=== PATIENT | female | born 1995 | race Two or more races ===

== ENCOUNTER 2018-09-26 08:53 | Inpatient (IN) | payer OTHER ==
--- NOTE | 2018-09-26 10:57 | HP ---
COWS - Scale Resting Pulse: 0= [place] 80 or Below Sweatin= Chills/Flushing Restless Observation: 1= Difficult to Sit Still Pupil Size: 1= Pupils >than Normal Bone or Joint Aches: 2= Severe Diffuse Aches Runny Nose/ Eye Tearin= Runny Nose/Eyes GI Upset > 30mins: 2= Nausea/Diarrhea Tremor Observation: 2= Slight Tremor Visible Yawning Observation: 2= >3x During Session Anxiety or Irritability: 2=Irritable/Anxious Goose Flesh Skin: 0=Smooth Skin COWS Score: 15 CIWA Score - Admission Criteria OASAS Guidelines: Admission for Medically Managed Detox: Requires at least one of the followin. CIWA greater than 12 2. Seizures within the past 24 hours 3. Delirium tremens within the past 24 hours 4. Hallucinations within the past 24 hours 5. Acute intervention needed for co occurring medical disorder 6. Acute intervention needed for co occurring psychiatric disorder 7. Severe withdrawal that cannot be handled at a lower level of care (continued vomiting, continued diarrhea, abnormal vital signs) requiring intravenous medication and/or fluids 8. Admission ROS [facility] - [facility] Chief Complaint: i need help to stop using oxycontin Allergies/Adverse Reactions: Allergies Allergy/AdvReac Type Severity Reaction Status Date / Time No Known Allergies Allergy Verified 09/26/18 09:49 History of Present Illness: this 23 years old female with oxycontin dependence seeking detox,withdrawal symptom,never been in detox before anxiety,depression,insomnia plan for rehab after detox Exam Limitations: No Limitations - Ebola screening Have you traveled outside of the country in the last 21 days: No Have you had contact with anyone from an Ebola affected area: No - Review of Systems Constitutional: Chills, Loss of Appetite, Malaise, Night Sweats, Changes in sleep, Weakness EENT: reports: Tearing, Nose Congestion Respiratory: reports: No Symptoms reported Cardiac: reports: No Symptoms Reported GI: reports: Nausea, Poor Appetite, Vomiting, Abdominal cramping : reports: No Symptoms Reported Musculoskeletal: reports: Back Pain, Joint Pain, Muscle Pain Integumentary: reports: Dryness Neuro: reports: Headache, Tremors Endocrine: reports: No Symptoms Reported Hematology: reports: No Symptoms Reported Psychiatric: reports: No Sypmtoms Reported, Judgement Intact, Mood/Affect Appropiate, Orientated x3, Anxious (isomnia), Depressed, other Patient History - Patient Medical History Hx Anemia: No Hx Asthma: No Hx Chronic Obstructive Pulmonary Disease (COPD): No Hx Cancer: No Hx Cardiac Disorders: No Hx Congestive Heart Failure: No Hx Hypertension: No Hx Hypercholesterolemia: No HX Cerebrovascular Accident: No Hx Seizures: No Hx Dementia: No Hx Diabetes: No Hx Gastrointestinal Disorders: No Hx Liver Disease: No Hx Genitourinary Disorders: No Hx Sexually Transmitted Disorders: No Hx Renal Disease (ESRD): No Hx Thyroid Disease: No Hx Human Immunodeficiency Virus (HIV): No (last negative) Hx Hepatitis C: No Hx Depression: Yes (anxiety) Hx Suicide Attempt: No Hx Bipolar Disorder: No Hx Schizophrenia: No Other Medical History: no suicidal,no homicidal - Patient Surgical History Past Surgical History: No - PPD History Previous Implant?: Yes Documented Results: Negative w/o proof Implanted On Prior [facility] Admission?: No PPD to be Administered?: No - Reproductive History Patient is a Female of Child Bearing Age (11 -55 yrs old): Yes Last Menstrual Period: 09/24/18 Patient : No - Smoking Cessation Smoking history: Never smoked - Substance & Tx. History Hx Alcohol Use: No Hx Substance Use: Yes Substance Use Type: Opiates Hx Substance Use Treatment: No - Substances abused Oxycontin Substance route: Oral Frequency: Daily Amount used: (4) 30mg tab Age of first use: 21 Date of last use: 09/25/18 Family Disease History - Family Disease History Family History: Denies Admission Physical Exam BHS - Vital Signs Vital Signs: Vital Signs - 24 hr 09/26/18 09/26/18 09:48 10:48 Temperature 97.5 F L 97.5 F L Pulse Rate 78 78 Respiratory 18 18 Rate Blood Pressure 124/78 124/78 - Physical General Appearance: Yes: Moderate Distress, Tremorous, Irritable, Sweating, Anxious HEENTM: Yes: Normal ENT Inspection, [place], Pharynx Normal Respiratory: Yes: Lungs Clear, Normal Breath Sounds, No Respiratory Distress Neck: Yes: Within Normal Limits, Supple, Trachea in good position Breast: Yes: Within Normal Limits Cardiology: Yes: Within Normal Limits, Regular Rhythm, Regular Rate, S1, S2 Abdominal: Yes: Normal Bowel Sounds, Non Tender, Flat, Soft Genitourinary: Yes: Within Normal Limits Back: Yes: Muscle Spasm Musculoskeletal: Yes: Back pain, Joint Stiffness, Muscle Pain Extremities: Yes: Tremors Neurological: 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: 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 NML intact, Alert, Motor Strength 5/5 Integumentary: Yes: Dry Lymphatic: Yes: Within Normal Limits - Diagnostic (1) Opioid dependence with withdrawal Current Visit: Yes Status: Acute (2) Insomnia secondary to depression with anxiety Current Visit: Yes Status: Acute Cleared for Admission [facility] - Detox or Rehab [facility] Level of Care: Medically Managed Detox Regimen/Protocol: Methadone Breathalyzer - Breathalyzer Breathalyzer: 0 Urine Drug Screen - Test Device Lot number: [id number] Expiration date: 06/21/20 - Control Is test valid?: Yes - Results Drug screen NEGATIVE: No Urine drug screen results: THC-Marijuana, FEN-Fentanyl Inpatient Rehab Admission - Rehab Decision to Admit Inpatient rehab admission?: No
[2018-09-26] MEDS ORDERED: cloNIDine HCL 0.1 MG TABLET PO PRN (11:06)
[2018-09-26] MEDS ORDERED: MAG HYDROX/AL HYDROX/SIMETH 30 ML UNIT-DOSE CUP PO PRN (11:06)
[2018-09-26] MEDS ORDERED: MAGNESIUM HYDROX 2400MG/30ML ORAL SUSPENSION 30 ML CUP PO PRN (11:06)
[2018-09-26] MEDS ORDERED: MENTHOL/PHENOL 1 EACH UD MM PRN (11:06)
[2018-09-26] MEDS ORDERED: BISMUTH SUBSALICYLATE 524 MG/30 ML UD PO PRN (11:06)
[2018-09-26] MEDS ORDERED: ACETAMINOPHEN 325 MG TABLET (FP) PO PRN ×2 (11:06)
[2018-09-26] MEDS ORDERED: METHOCARBAMOL 500 MG TABLET PO PRN (11:06)
[2018-09-26] MEDS ORDERED: MAGNESIUM CITRATE 300 ML BOTTLE PO PRN (11:06)
[2018-09-26 11:20] VITALS: BMI 23.3
[2018-09-26] MEDS ORDERED: METHADONE HCL 10 MG TABLET (FOR DETOX USE ONLY) PO ONE (12:00)
[2018-09-26 15:24] LABS: HEMATOCRIT 32.6 % (32.4-45.2); HEMOGLOBIN 11.3 GM/dL (10.7-15.3); MCH 31.2 pg (25.7-33.7); MCHC 34.6 g/dl (32.0-36.0); MEAN PLT VOLUME 8.2 fl (7.5-11.1); PLATELET COUNT 222 K/MM3 (134-434); RBC 3.62 M/mm3 (3.60-5.2); RDW 13.1 % (11.6-15.6); WHITE BLOOD COUNT 6.1 K/mm3 (4.0-10.0)
--- NOTE | 2018-09-26 15:25 | EKG ---
Test Reason : Blood Pressure : / mmHG Vent. Rate : 061 BPM Atrial Rate : 061 BPM P-R Int : 128 ms QRS Dur : 082 ms QT Int : 396 ms P-R-T Axes : 049 083 054 degrees QTc Int : 398 ms NORMAL SINUS RHYTHM WITH SINUS ARRHYTHMIA NORMAL ECG NO PREVIOUS ECGS AVAILABLE Confirmed by DWIGHT VILLEDA MD ([id number]) on 09/26/2018 3:24:42 PM Referred By: Confirmed By:DWIGHT VILLEDA MD
[2018-09-26 15:30] LABS: ALBUMIN 3.6 g/dl (3.4-5.0); BILIRUBIN,TOTAL 0.6 mg/dL (0.2-1); BLOOD UREA NITROGEN 10.9 mg/dL (7-18); CALCIUM 9.1 mg/dL (8.5-10.1); CREATININE 0.6 mg/dL (0.55-1.3); TOT PROT 6.4 g/dl (6.4-8.2)
[2018-09-26] MEDS: IBUPROFEN 400 MG TABLET (FP) PO PRN ×2 (15:57→22:11)
[2018-09-26] MEDS: THIAMINE HCL 100 MG TABLET (FP) PO SCH (22:09)
[2018-09-26] MEDS: MELATONIN 5 MG TABLETS PO PRN (22:09)
[2018-09-26] MEDS: hydrOXYzine PAMOATE 25 MG CAPSULE (FP) PO PRN (22:09)
[2018-09-27] MEDS ORDERED: METHADONE HCL 5 MG TABLET (FOR DETOX USE ONLY) PO ONE (10:00)
[2018-09-27] MEDS: PRENATAL VITAMINS W/ FOLIC ACID TABLET (FP) PO SCH (10:26)
[2018-09-27] MEDS: IBUPROFEN 400 MG TABLET (FP) PO PRN ×2 (10:27→17:38)
--- NOTE | 2018-09-27 10:27 | PN ---
BHS COWS - Scale Resting Pulse: 1= [place] 81-100 Sweatin= Chills/Flushing Restless Observation: 0= Sits Still Pupil Size: 1= Pupils >than Normal Bone or Joint Aches: 1= Mild Discomfort Runny Nose/ Eye Tearin= Nasal Congestion GI Upset > 30mins: 2= Nausea/Diarrhea Tremor Observation of Outstretched Hands: 1= Tremor [place], Not Seen Yawning Observation: 0= None Anxiety or Irritability: 1=Feels Anxious/Irritable Goose Flesh Skin: 3=Piloerection COWS Score: 12 BHS Progress Note (SOAP) Subjective: 23 years old female admitted on 09/26/18 for acute opiate withdrawal sx management doing well with methadone detox regimen tired resting on bed low energy restlessness long history of depression treated with remeron 30 mg po hs last dose unknown wait for psychiatrist consultation patient was taking suboxone 8-2 mg po daily last filled 07/27/18 encourage the patient return to suboxone program where helping the patient avoid opiate misuse upon discharge from methadone detox patient is hesitating to discuss 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 Objective: 09/27/18 10:33 Vital Signs Temperature 97.3 F L 09/27/18 09:25 Pulse Rate 86 09/27/18 09:25 Respiratory Rate 18 09/27/18 09:25 Blood Pressure 115/73 09/27/18 09:25 O2 Sat by Pulse Oximetry (%) Laboratory Last Values WBC 6.1 K/mm3 (4.0-10.0) 09/26/18 11:15 RBC 3.62 M/mm3 (3.60-5.2) 09/26/18 11:15 Hgb 11.3 GM/dL (10.7-15.3) 09/26/18 11:15 Hct 32.6 % (32.4-45.2) 09/26/18 11:15 MCV 90.0 fl (80-96) 09/26/18 11:15 MCH 31.2 pg (25.7-33.7) 09/26/18 11:15 MCHC 34.6 g/dl (32.0-36.0) 09/26/18 11:15 RDW 13.1 % (11.6-15.6) 09/26/18 11:15 Plt Count 222 K/MM3 (134-434) 09/26/18 11:15 MPV 8.2 fl (7.5-11.1) 09/26/18 11:15 Sodium 142 mmol/L (136-145) 09/26/18 11:15 Potassium 4.0 mmol/L (3.5-5.1) 09/26/18 11:15 Chloride 110 mmol/L (98-107) H 09/26/18 11:15 Carbon Dioxide 29 mmol/L (21-32) 09/26/18 11:15 Anion Gap 4 MMOL/L (8-16) L 09/26/18 11:15 BUN 10.9 mg/dL (7-18) 09/26/18 11:15 Creatinine 0.6 mg/dL (0.55-1.3) 09/26/18 11:15 Est GFR (CKD-EPI)AfAm 149.95 09/26/18 11:15 Est GFR (CKD-EPI)NonAf 129.38 09/26/18 11:15 Random Glucose 103 mg/dL (74-106) 09/26/18 11:15 Calcium 9.1 mg/dL (8.5-10.1) 09/26/18 11:15 Total Bilirubin 0.6 mg/dL (0.2-1) 09/26/18 11:15 AST 38 U/L (15-37) H 09/26/18 11:15 ALT 64 U/L (13-61) H 09/26/18 11:15 Alkaline Phosphatase 62 U/L (45-117) 09/26/18 11:15 Total Protein 6.4 g/dl (6.4-8.2) 09/26/18 11:15 Albumin 3.6 g/dl (3.4-5.0) 09/26/18 11:15 RPR Titer Nonreactive (NONREACTIVE) 09/26/18 11:15 lab noted Assessment: 09/27/18 10:33 opiate withdrawal sx Plan: continue opiate detox
--- NOTE | 2018-09-27 14:13 | CONSULT ---
[facility] Psychiatric Consult - Data Date of interview: 09/27/18 Admission source: [facility] Identifying data: First admission to [facility] for this 23 y/o AA female self- referred for detoxification (opiate). Interviewed at [address] [place] [address]. Patient is single , no children, domiciled and currently employed. Substance Abuse History: Smoking history: Never smoked. Substance & Tx. History. Hx Alcohol Use: No. Hx Substance Use: Yes. Substance Use Type: Opiates. Hx Substance Use Treatment: No. - Substances abused. Oxycontin. Substance route: Oral. Frequency: Daily. Amount used: (4) 30mg tab. Age of first use: 21. Date of last use: 09/25/18 Medical History: Patient endorses good general health. Psychiatric History: Patient admits to a history of psychiatric hospitalizations , since age 15, in [facility] and facilities in [place]. Diagnosed with MDD, Anxiety Disorder, Borderline Personality Disorder and ADHD. Ms Irvin sees a psychiatrist + therapist at the [facility] in [place] for medication management. Prescribed remeron 30 mg/hs + methylphenidate (dose not recalled). Patient reports two suicide attempts via burning and self-mutilation (age 15 + 19). Physical/Sexual Abuse/Trauma History: Patient denies history of abuse. Additional Comment: Urine drug screen results: THC-Marijuana, FEN-[place]ent[place]. Noted. Mental Status Exam - Mental Status Exam Alert and Oriented to: Time, Place, Person Cognitive Function: Good Patient Appearance: Well Groomed Mood: Hopeful, Euthymic Affect: Appropriate, Normal Range Patient Behavior: Fatigued, Appropriate, Cooperative Speech Pattern: Clear, Appropriate Voice Loudness: Normal Thought Process: Intact, Goal Oriented Thought Disorder: Not Present Hallucinations: Denies Suicidal Ideation: Denies Homicidal Ideation: Denies Insight/Judgement: Poor Sleep: Poorly, Difficulty falling asleep Appetite: Good Gait/Station: Normal Psychiatric Findings - Problem List ([place] 1, 2,3) (1) Opioid dependence with withdrawal Current Visit: Yes Status: Acute (2) H/O borderline personality disorder Current Visit: Yes Status: Chronic (3) ADHD (attention deficit hyperactivity disorder) Current Visit: Yes Status: Chronic Comment: As per self-report. On psychostimulant. (4) MDD (major depressive disorder) Current Visit: Yes Status: Chronic Comment: As per history. (5) Insomnia Current Visit: Yes Status: Chronic - Initial Treatment Plan Initial Treatment Plan: Psychoeducation. Sleep hygiene. Detoxification. NA meetings. Groups. Support. Resume remeron 30 mg po hs (confirmed by external pharmacy activity of 09/20/18 at [facility]). Side effects/benefits discussed with the patient. Ms Irvin gave verbal consent to Observation.
[2018-09-27 15:57] LABS: PH,URINE 8.5 (5.0-8.0); URINE APPEARANCE CLEAR; URINE BILIRUBIN NEGATIVE (NEGATIVE); URINE COLOR YELLOW; URINE GLUCOSE (UA) NEGATIVE (NEGATIVE); URINE KETONE NEGATIVE (NEGATIVE); URINE LEUK ESTERASE NEGATIVE (NEGATIVE); URINE NITRITE NEGATIVE (NEGATIVE); URINE PROTEIN NEGATIVE (NEGATIVE); URINE UROBILINOGEN 0.2 mg/dL (0.2-1.0)
[2018-09-27] MEDS ORDERED: MIRTAZAPINE 15 MG TABLET (FP) ONE (21:23)
[2018-09-27] MEDS: THIAMINE HCL 100 MG TABLET (FP) PO SCH (22:15)
[2018-09-27] MEDS: hydrOXYzine PAMOATE 25 MG CAPSULE (FP) PO PRN (22:15)
[2018-09-27] MEDS: MIRTAZAPINE 30 MG TABLET (FP) PO SCH (22:16)
[2018-09-28] MEDS ORDERED: METHADONE HCL 10 MG TABLET (FOR DETOX USE ONLY) PO ONE (10:00)
[2018-09-28] MEDS: PRENATAL VITAMINS W/ FOLIC ACID TABLET (FP) PO SCH (10:32)
[2018-09-28] MEDS: IBUPROFEN 400 MG TABLET (FP) PO PRN (10:32)
--- NOTE | 2018-09-28 13:50 | PN ---
BHS COWS - Scale Resting Pulse: 2= [place] 101-120 Sweatin= Chills/Flushing Restless Observation: 0= Sits Still Pupil Size: 0= Normal to Room Light Bone or Joint Aches: 1= Mild Discomfort Runny Nose/ Eye Tearin= Nasal Congestion GI Upset > 30mins: 0= None Tremor Observation of Outstretched Hands: 1= Tremor [place], Not Seen Yawning Observation: 0= None Anxiety or Irritability: 1=Feels Anxious/Irritable Goose Flesh Skin: 0=Smooth Skin COWS Score: 7 BHS Progress Note (SOAP) Subjective: vomiting x 1 zofran 4 mg po now zofran 4 mg q6h prn encourage oral fluid Objective: 09/28/18 13:53 Vital Signs Temperature 99.0 F 09/28/18 09:24 Pulse Rate 109 H 09/28/18 09:24 Respiratory Rate 17 09/28/18 09:24 Blood Pressure 98/70 09/28/18 09:24 O2 Sat by Pulse Oximetry (%) Laboratory Last Values WBC 6.1 K/mm3 (4.0-10.0) 09/26/18 11:15 RBC 3.62 M/mm3 (3.60-5.2) 09/26/18 11:15 Hgb 11.3 GM/dL (10.7-15.3) 09/26/18 11:15 Hct 32.6 % (32.4-45.2) 09/26/18 11:15 MCV 90.0 fl (80-96) 09/26/18 11:15 MCH 31.2 pg (25.7-33.7) 09/26/18 11:15 MCHC 34.6 g/dl (32.0-36.0) 09/26/18 11:15 RDW 13.1 % (11.6-15.6) 09/26/18 11:15 Plt Count 222 K/MM3 (134-434) 09/26/18 11:15 MPV 8.2 fl (7.5-11.1) 09/26/18 11:15 Sodium 142 mmol/L (136-145) 09/26/18 11:15 Potassium 4.0 mmol/L (3.5-5.1) 09/26/18 11:15 Chloride 110 mmol/L (98-107) H 09/26/18 11:15 Carbon Dioxide 29 mmol/L (21-32) 09/26/18 11:15 Anion Gap 4 MMOL/L (8-16) L 09/26/18 11:15 BUN 10.9 mg/dL (7-18) 09/26/18 11:15 Creatinine 0.6 mg/dL (0.55-1.3) 09/26/18 11:15 Est GFR (CKD-EPI)AfAm 149.95 09/26/18 11:15 Est GFR (CKD-EPI)NonAf 129.38 09/26/18 11:15 Random Glucose 103 mg/dL (74-106) 09/26/18 11:15 Calcium 9.1 mg/dL (8.5-10.1) 09/26/18 11:15 Total Bilirubin 0.6 mg/dL (0.2-1) 09/26/18 11:15 AST 38 U/L (15-37) H 09/26/18 11:15 ALT 64 U/L (13-61) H 09/26/18 11:15 Alkaline Phosphatase 62 U/L (45-117) 09/26/18 11:15 Total Protein 6.4 g/dl (6.4-8.2) 09/26/18 11:15 Albumin 3.6 g/dl (3.4-5.0) 09/26/18 11:15 Urine Color Yellow 09/27/18 13:30 Urine Appearance Clear 09/27/18 13:30 Urine pH 8.5 (5.0-8.0) H 09/27/18 13:30 Ur Specific [place] 1.013 (1.010-1.035) 09/27/18 13:30 Urine Protein Negative (NEGATIVE) 09/27/18 13:30 Urine Glucose (UA) Negative (NEGATIVE) 09/27/18 13:30 Urine Ketones Negative (NEGATIVE) 09/27/18 13:30 Urine Blood Negative (NEGATIVE) 09/27/18 13:30 Urine Nitrite Negative (NEGATIVE) 09/27/18 13:30 Urine Bilirubin Negative (NEGATIVE) 09/27/18 13:30 Urine Urobilinogen 0.2 mg/dL (0.2-1.0) 09/27/18 13:30 Ur Leukocyte Esterase Negative (NEGATIVE) 09/27/18 13:30 RPR Titer Nonreactive (NONREACTIVE) 09/26/18 11:15 lab noted Assessment: 09/28/18 13:53 opiate withdrawal sx Plan: continue opiate detox
[2018-09-28] MEDS ORDERED: ONDANSETRON *ODT* 4 MG TABLET SL ONE (14:00)
[2018-09-28] MEDS: RANITIDINE HCL 150 MG TABLET (FP) PO SCH ×2 (15:21→22:06)
[2018-09-28] MEDS ORDERED: MIRTAZAPINE 15 MG TABLET (FP) ONE (19:41)
[2018-09-28] MEDS ORDERED: ONDANSETRON *ODT* 4 MG TABLET SL PRN (21:00)
[2018-09-28] MEDS: THIAMINE HCL 100 MG TABLET (FP) PO SCH (22:05)
[2018-09-28] MEDS: MELATONIN 5 MG TABLETS PO PRN (22:06)
[2018-09-28] MEDS: MIRTAZAPINE 30 MG TABLET (FP) PO SCH (22:06)
[2018-09-29] MEDS ORDERED: METHADONE HCL 5 MG TABLET (FOR DETOX USE ONLY) PO ONE (06:00)
[2018-09-29 06:34] VITALS: BP 102/68; PULSE 69; TEMP 97.1
--- NOTE | 2018-09-29 15:21 | DS ---
[facility] Detox Discharge Summary Admission Date: 09/26/18 Discharge Date: 09/29/18 - History Present History: Opioid Dependence Additional Comments: 23 years old female admitted on 09/26/18 for opiate withdrawal sx management doing well with methadone detox regimen no complication through out the detox stay patient is alert oriented x 3 no dizziness no shortness of breathe patient is look forward to go to [facility] - Physical Exam Results Vital Signs: Vital Signs Temperature 97.1 F L 09/29/18 06:33 Pulse Rate 69 09/29/18 06:33 Respiratory Rate 16 09/29/18 06:33 Blood Pressure 102/68 09/29/18 06:33 O2 Sat by Pulse Oximetry (%) Pertinent Admission Physical Exam Findings: opiate withdrawal sx Laboratory Last Values WBC 6.1 K/mm3 (4.0-10.0) 09/26/18 11:15 RBC 3.62 M/mm3 (3.60-5.2) 09/26/18 11:15 Hgb 11.3 GM/dL (10.7-15.3) 09/26/18 11:15 Hct 32.6 % (32.4-45.2) 09/26/18 11:15 MCV 90.0 fl (80-96) 09/26/18 11:15 MCH 31.2 pg (25.7-33.7) 09/26/18 11:15 MCHC 34.6 g/dl (32.0-36.0) 09/26/18 11:15 RDW 13.1 % (11.6-15.6) 09/26/18 11:15 Plt Count 222 K/MM3 (134-434) 09/26/18 11:15 MPV 8.2 fl (7.5-11.1) 09/26/18 11:15 Sodium 142 mmol/L (136-145) 09/26/18 11:15 Potassium 4.0 mmol/L (3.5-5.1) 09/26/18 11:15 Chloride 110 mmol/L (98-107) H 09/26/18 11:15 Carbon Dioxide 29 mmol/L (21-32) 09/26/18 11:15 Anion Gap 4 MMOL/L (8-16) L 09/26/18 11:15 BUN 10.9 mg/dL (7-18) 09/26/18 11:15 Creatinine 0.6 mg/dL (0.55-1.3) 09/26/18 11:15 Est GFR (CKD-EPI)AfAm 149.95 09/26/18 11:15 Est GFR (CKD-EPI)NonAf 129.38 09/26/18 11:15 Random Glucose 103 mg/dL (74-106) 09/26/18 11:15 Calcium 9.1 mg/dL (8.5-10.1) 09/26/18 11:15 Total Bilirubin 0.6 mg/dL (0.2-1) 09/26/18 11:15 AST 38 U/L (15-37) H 09/26/18 11:15 ALT 64 U/L (13-61) H 09/26/18 11:15 Alkaline Phosphatase 62 U/L (45-117) 09/26/18 11:15 Total Protein 6.4 g/dl (6.4-8.2) 09/26/18 11:15 Albumin 3.6 g/dl (3.4-5.0) 09/26/18 11:15 Urine Color Yellow 09/27/18 13:30 Urine Appearance Clear 09/27/18 13:30 Urine pH 8.5 (5.0-8.0) H 09/27/18 13:30 Ur Specific [place] 1.013 (1.010-1.035) 09/27/18 13:30 Urine Protein Negative (NEGATIVE) 09/27/18 13:30 Urine Glucose (UA) Negative (NEGATIVE) 09/27/18 13:30 Urine Ketones Negative (NEGATIVE) 09/27/18 13:30 Urine Blood Negative (NEGATIVE) 09/27/18 13:30 Urine Nitrite Negative (NEGATIVE) 09/27/18 13:30 Urine Bilirubin Negative (NEGATIVE) 09/27/18 13:30 Urine Urobilinogen 0.2 mg/dL (0.2-1.0) 09/27/18 13:30 Ur Leukocyte Esterase Negative (NEGATIVE) 09/27/18 13:30 RPR Titer Nonreactive (NONREACTIVE) 09/26/18 11:15 TB (QFT) Incubation (.) 09/26/18 11:15 TB Test (QFT) Nil 0.03 IU/mL (.) 09/26/18 11:15 TB Test (QFT) Mitogen >10.00 IU/mL (.) 09/26/18 11:15 TB Test (QFT) Antigen 0.03 IU/mL (.) 09/26/18 11:15 TB Test (QFT) Negative (Negative) 09/26/18 11:15 TB Positive Criteria (.) 09/26/18 11:15 lab noted - Treatment Hospital Course: Detox Protocol Followed, Detoxed Safely, Responded well, Discharged Condition Good, Rehab Referral Accepted Patient has Accepted a Rehab Referral to: [facility] - Medication Discharge Medications: Ambulatory Orders Mirtazapine [Remeron -] 30 mg PO HS 09/26/18 - Diagnosis (1) Opioid dependence with withdrawal Status: Acute - AMA Did Patient Leave Against Medical Advice: No
== END 2018-09-29 09:00 | disposition home or self-care (01) | DRG 773 ==
LOC: YASAS 08:53 → Y3N 11:21
PROVIDERS: ADMIT Surgery; ATTEND Surgery
PROC: HZ2ZZZZ Detoxification Services for Substance Abuse Treatment (ICD-10-PCS; principal; 2018-09-26)
DX: F11.23 Opioid dependence with withdrawal (principal); F43.10 Post-traumatic stress disorder, unspecified; F32.9 Major depressive disorder, single episode, unspecified; F51.05 Insomnia due to other mental disorder; G47.00 Insomnia, unspecified
CPT/HCPCS: 36415; 80053; 81003; 81025; 85027; 86480; 86593; 93005; 93010; Q0162